=== PATIENT | male | born 1950 | race Caucasian/White ===

== ENCOUNTER → 2020-06-17 08:27 | Outpatient (CLI) | payer MEDICARE, OTHER, SELFPAY ==
[2020-06-17] MEDS: COVID-19 VACC #1, MRNA(MOD) 100 MCG/0.5 ML VIAL IM (08:36)
== END ==
PROVIDERS: PCP Registered Nurse Diabetes Educator; Visit Provider Internal Medicine
DX: Z23 Encounter for immunization (principal)
CPT/HCPCS: 0011A; 91301

== ENCOUNTER → 2020-07-15 08:26 | Outpatient (CLI) | payer MEDICARE, OTHER, SELFPAY ==
[2020-07-15] MEDS: COVID-19 VACC #2, MRNA(MOD) 100 MCG/0.5 ML VIAL IM (08:31)
== END ==
PROVIDERS: PCP Registered Nurse Diabetes Educator; Visit Provider Internal Medicine
DX: Z23 Encounter for immunization (principal)
CPT/HCPCS: 0012A; 91301

== ENCOUNTER → 2020-09-17 07:28 | Outpatient (CLI) | payer MEDICARE, OTHER, SELFPAY ==
[2020-09-17 08:02] LABS: Hemoglobin A1C% w Est Avg Glu 5.2 % (4.0-6.0)
[2020-09-17 08:03] LABS: Hematocrit 40.1 % (41-53); Hemoglobin 13.4 g/dL (13.5-17.5); Mean Corpuscular HGB Conc 33.4 % (30-36); Mean Corpuscular Hemoglobin 33.1 PG (26-34); Mean Corpuscular Volume 98.9 fL (80-100); Red Blood Cell Count 4.05 X10^6/uL (4.5-5.9); Red Cell Distribution Width 14.1 % (11.6-14.8); White Blood Cell Count 5.7 X10^3/uL (4.5-11.0)
[2020-09-17 08:15] LABS: HEMOLYSIS < 15 (0-50); Potassium 4.5 mmol/L (3.4-5.1)
[2020-09-17 08:16] LABS: Alanine Aminotransferase 45 IU/L (<50); Albumin Globulin Ratio 1.1 (1.0-2.8); Alkaline Phosphatase 71 U/L (38-126); Aspartate Aminotransferase 81 IU/L (17-59); BUN Creatinine Ratio 12.9 (6-22); Bilirubin Total 1.6 mg/dL (0.2-1.3); Blood Urea Nitrogen 9 mg/dL (9-20); Calcium 9.2 mg/dL (8.4-10.2); Carbon Dioxide 28 mmol/L (22-32); Chloride 101 mmol/L (98-107); Cholesterol 107 mg/dL (140-199); Estimated Glomerular Filt Rate > 60.0 mL/min (>60); Globulin 3.8 g/dL (1.7-4.1); Glucose 110 mg/dL (80-110); HDL Cholesterol 45 mg/dL (40-60); LDL Cholesterol Calculated 48 mg/dL (<100); Sodium 136 mmol/L (137-145); Total Protein 7.8 g/dL (6.3-8.2); Triglycerides 72 mg/dL (35-150)
[2020-09-17 08:37] LABS: Platelet Count 118 X10^3/uL (150-400)
[2020-09-17 08:40] LABS: TSH w/ Reflex to FT4 5.89 uIU/mL (0.47-4.68)
[2020-09-17 09:09] LABS: Free T4, Direct Thyroxine 1.21 ng/dL (0.78-2.19)
== END ==
PROVIDERS: PCP Registered Nurse Diabetes Educator; Referring Provider Registered Nurse Diabetes Educator; Visit Provider Registered Nurse Diabetes Educator
DX: I25.10 Atherosclerotic heart disease of native coronary artery without angina pectoris (principal); R73.01 Impaired fasting glucose
CPT/HCPCS: 36415; 80053; 80061; 83036; 84439; 84443; 85027

== ENCOUNTER → 2020-10-07 10:10 | Outpatient (CLI) | payer MEDICARE, OTHER, SELFPAY ==
[2020-10-07 11:31] LABS: Add Manual Diff / Slide Review NO; Basophils Absolute Auto 100 /uL (0-100); Basophils Percent Auto 1.2 % (0-2); Eosinophils Absolute Auto 300 /uL (0-450); Eosinophils Percent Auto 5.4 % (2-4); Hematocrit 38.2 % (41-53); Lymphocytes Absolute Auto 1000 /uL (1100-4500); Lymphocytes Percent Auto 18.2 % (25-40); Mean Corpuscular HGB Conc 33.9 % (30-36); Mean Corpuscular Hemoglobin 33.5 PG (26-34); Mean Corpuscular Volume 98.6 fL (80-100); Monocytes Absolute Auto 900 /uL (0-900); Monocytes Percent Auto 16.4 % (3-14); Neutrophils Absolute Auto 3100 /uL (1500-7000); Neutrophils Percent Auto 58.8 % (50-75); Platelet Count 132 X10^3/uL (150-400); Red Blood Cell Count 3.88 X10^6/uL (4.5-5.9); Red Cell Distribution Width 14.6 % (11.6-14.8); White Blood Cell Count 5.3 X10^3/uL (4.5-11.0)
[2020-10-07 11:45] LABS: Alanine Aminotransferase 38 IU/L (<50); Alkaline Phosphatase 79 U/L (38-126); Aspartate Aminotransferase 75 IU/L (17-59); BUN Creatinine Ratio 14.5 (6-22); Blood Urea Nitrogen 10 mg/dL (9-20); Calcium 8.9 mg/dL (8.4-10.2); Carbon Dioxide 27 mmol/L (22-32); Chloride 97 mmol/L (98-107); Estimated Glomerular Filt Rate > 60.0 mL/min (>60); Globulin 3.9 g/dL (1.7-4.1); Glucose 109 mg/dL (80-110); HEMOLYSIS < 15 (0-50); Potassium 5.3 mmol/L (3.4-5.1); Sodium 131 mmol/L (137-145); Total Protein 7.9 g/dL (6.3-8.2)
== END ==
PROVIDERS: PCP Registered Nurse Diabetes Educator; Referring Provider Registered Nurse Diabetes Educator; Visit Provider Registered Nurse Diabetes Educator
DX: I10 Essential (primary) hypertension (principal); D69.6 Thrombocytopenia, unspecified; R74.8 Abnormal levels of other serum enzymes; R79.89 Other specified abnormal findings of blood chemistry
CPT/HCPCS: 36415; 80053; 84443; 85025

== ENCOUNTER → 2020-10-15 09:17 | Outpatient (CLI) | payer MEDICARE, OTHER, SELFPAY ==
--- NOTE | 2020-10-15 09:20 | DI.RAD.S_ITS ---
PROCEDURE: XR CHEST 2V INDICATIONS: Abnormal lung sounds bilateral lower lobes/smoker TECHNIQUE: 2 views of the chest were acquired. COMPARISON: [facility], CR, XR CHEST 1VW (PORTABLE), 05/22/2016, 10:49. FINDINGS: Surgical changes and devices: None. Lungs and pleura: Lungs are clear. No pleural effusions or pneumothorax. Mediastinum: Mediastinal contours are normal. Heart size is normal. Bones and chest wall: No suspicious bony abnormalities. Soft tissues appear unremarkable. IMPRESSION: No acute cardiopulmonary process demonstrated radiographically. Dictated by: Dieter Ravi M.D. on 10/15/2020 at 9:57 Approved by: Dieter Ravi M.D. on 10/15/2020 at 9:59
== END ==
PROVIDERS: PCP Registered Nurse Diabetes Educator; Referring Provider Registered Nurse Diabetes Educator; Visit Provider Registered Nurse Diabetes Educator
DX: R09.89 Other specified symptoms and signs involving the circulatory and respiratory systems (principal); F17.200 Nicotine dependence, unspecified, uncomplicated
CPT/HCPCS: 71046

== ENCOUNTER → 2021-01-14 08:48 | Outpatient (CLI) | payer MEDICARE, OTHER, SELFPAY ==
--- OUTSIDE RECORDS SUMMARY | 2021-01-11 07:48 | XMS_ITS | Referral Summary ---
:1950 Author Organization [address] [address] Care Team Providers Name Role Phone MAO Valentin Primary Care Provider Reason for Referral Rehabilitation - Outpatient (Routine) - Closed Specialty Diagnoses / Procedures Referred By Contact Refer red To Contact Diagnoses SOB (shortness of breath) Martha Pryor MD [facility] Procedures Complete PFT with DLCO [address] [place] [address] [place] [id number] [place], [place] [address] Referral ID Status Reason Start Date Expiration Date Visits Requ ested Visits Authorized [id number] Closed 12/30/2020 12/25/2021 1 1 Diagnostic Imaging (Routine) - Pending Review Specialty Diagnoses / Procedures Referred By Contact Refer red To Contact Radiology Diagnoses Cerebrovascular accident (CVA), unspecified mechanism (CMS/HCC) Martha Pryor MD Procedures US CAROTID BILATERAL [address] [place] [address] [address] [place], [place] [address] Referral ID Status Reason Start Expiration Visits Visits Date Date Requested Authorized [id number] Pending Specialty 12/30/2020 12/25/2021 1 1 Review Services Required MRI/CAT/PET Scan (Routine) - Pending Review Specialty Diagnoses / Procedures Referred By Contact Refer red To Contact Radiology Diagnoses SOB (shortness of breath) Martha Pryor MD Procedures CT HIGH RESOLUTION CHEST [address] [place], [place] [address] Referral ID Status Reason Start Expiration Visits Visits Date Date Requested Authorized [id number] Pending Specialty 12/30/2020 12/25/2021 1 1 Review Services Required Reason for Visit Reason Comments Coronary Artery Disease Encounter Details Date Type Department Care Team Description [facility] Paroxysmal a trial fibrillation (CMS/HCC) (Primary Dx); Clinics Cardiology Martha Villanueva MD SOB (shortness of breath); [place] [address] Cerebrovascular accident (CV A), unspecified mechanism (CMS/HCC) [address] [place] [id number] Allergies Active Allergy Reactions Severity Noted Date Comments Hydromorphone Hcl 02/04/2017 documented as of this encounter (statuses as of 01/08/2021) Medications Medication Sig Dispensed Refills Start Date End Date Status atorvastatin Take 40 mg by 0 12/27/2016 Ac tive (LIPITOR) 40 mg mouth daily. tablet nicotine (NICODERM 1 patch daily. 0 06/10/2016 Active CQ) 14 mg/24 hr blood sugar Any type glucose 0 07/26/2016 Active diagnostic (glucose test strips need blood) strip for his one touch machine. Use to check Blood Sugar once daily. metFORMIN XR take 1 tablet by 30 tablet 2 07/25/2017 Active (GLUCOPHATE-XR) 500 mouth once daily mg 24 hr tablet amLODIPine (NORVASC) Take 5 mg by 0 09/11/2017 Active 5 mg tablet mouth. omeprazole Take 20 mg by 0 Activ e (PriLOSEC) 20 mg mouth daily. capsule aspirin 81 mg EC Take 81 mg by 0 Active tablet mouth daily. nitroglycerin Place 1 tablet 25 tablet 3 01/10/2019 Active (NITROSTAT) 0.4 mg (0.4 mg total) SL tablet under the tongue every 5 (five) minutes as needed for chest pain atenoloL (TENORMIN) Take 1 tablet by 0 02/20/2020 Active 25 mg tablet mouth daily valsartan (DIOVAN) Take 80 mg by 0 11/08/2019 Active 80 mg tablet mouth daily warfarin (COUMADIN) Take 1 tab (5mg) 130 tablet 0 11/26/2020 0 11/26/2021 Active 5 mg on Mon and Fri tabletIndications: and 1/2 tab Paroxysmal atrial (2.5mg) all other fibrillation days or as (CMS/HCC), S/P right directed by coronary artery cardiology (RCA) stent placement albuterol HFA Inhale 2 puffs 18 g 11 12/30/2020 12/30/2021 Active (ProAir) 90 every 4 (four) mcg/actuation hours as needed inhaler for wheezing or shortness of breath documented as of this encounter (statuses as of 01/08/2021) Active Problems Problem Noted Date Tobacco use 12/18/2017 Old anterior myocardial infarction 12/18/2017 Overview: in 08/1988 Appears asymptomatic. S/P right coronary artery (RCA) stent placement 2017 Overview: in 06/1996 and 01/1997. Paroxysmal atrial fibrillation 12/18/2017 Overview: EKG performed today showed . CAD (coronary artery disease) 02/22/2017 Overview: 12/20/2007 Hypertension 02/22/2017 Hyperlipidemia LDL goal <70 02/22/2017 Controlled type 2 diabetes mellitus without complicati on, without 02/22/2017 long-term current use of insulin documented as of this encounter (statuses as of 01/08/2021) Social History Tobacco Use Types Packs/Day Years Used Date Current Some Day Smoker 0.25 Smokeless Tobacco: Never Used Comments: Cigarette Alcohol Use Standard Drinks/Week Comments Yes 2 (1 standard drink = 0.6 oz pure alcoho l) Sex Assigned at Date Recorded Not on file Job Start Date Occupation Industry Not on file Not on file Not on file documented as of this encounter Last Filed Vital Signs Vital Sign Reading Time Taken Comments Blood Pressure 112/64 12/30/2020 9:03 AM PDT Pulse 80 12/30/2020 9:03 AM PDT Temperature - - Respiratory Rate - - Oxygen Saturation - - Inhaled Oxygen Concentration - - Weight 66.5 kg (146 lb 9.6 oz) 12/30/2020 9:03 AM PDT Height - - Body Mass Index 22.3 12/27/2018 8:59 AM PDT documented in this encounter Progress Notes Martha Proyr MD - 12/30/2020 9:30 AM PDT 1. Continue current pills 2. Do a blood test for regular cholesterol and also RARE flavor of cholesterol 3. 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 male that had concerns including Coronary Artery Disease. HPI: Pt is a 70 yo man with early onset CAD s/p anterior STEMI 89, PCI RCA 97, permanent afib (on warfarin and atenolol), DM (controlled on metformin), HTN, HL and stroke. He comes in to establish with me in cardiology after being followed by Dr. Farmer, and then sort of not having been seen by cardiology in 2 years. Pt has strong FH of heart disease, and had suffered a heart attack at age 38 yo. His angina is pretty classic with substernal burning pain radiating down left shoulder and arm. He has not had any of those symptoms lately. He suffered a stroke 2007 ([facility] at [facility]) with mild left leg residual weakness. Additionally he struggled with afib, but tolerating warfarin (inr monitored by [facility] cardiology); his biggest issue is involuntary weight loss (10 lbs) and ongoing smoking. Despite these problems pt is still active, and enjoys golfing. PAST CARDIAC HISTORY stemi - ANGINAL EQUIVALENT IS SEVERE CP, GOING DOWN LEFT ARM. Treated in [place] (Dr. Camacho at [facility]) PAST CARDIAC WORKUP Gxt/mpi 12/2018 Abnormal but intermediate risk stress test. Afib/rvr throughout the study. Even at the beginning of the study heart rate was 110 bpm. Normal hemodynamic reponse to graded exercise stress test; good exercise capacity for age; MARCIE -19%; no chest pain during activity. There is a large severe fixed apical perfusion defect consistent with prior infarct in LAD distribution. Echo 2016 The left ventricle is normal in size. The ejection fraction is estimated to be 50-55%. There is severe hypokinesis to akinesis of the mid and distal anterior septum, anterior wall and apex c/w ischemia or infarct in the LAD distribution. Assessment of diastolic parameters suggests a pseudonormalization pattern, consistent with elevatedfilling pressures. The IVC is of normal diameter and collapses greater than 50% with a sniff. This suggests a low right atrial pressure of 3 mm Hg. No other echocardiographic abnormalities seen. Compared to the prior echo report on 07/10/2013, thereis no significant change. Past Medical History: Diagnosis Date ??? Acute CVA (cerebrovascular accident) (CMS/HCC) 11/2007 with deficits ??? AF (paroxysmal atrial fibrillation) (CMS/HCC) ??? Arrhythmia ??? CAD (coronary artery disease) ??? Diabetes mellitus (CMS/HCC) ??? History of fracture of clavicle ??? Hyperlipidemia ??? Hypertension ??? Myocardial infarction (CMS/HCC) 1988 ??? TIA (transient ischemic attack) Past Surgical History: Procedure Laterality Date ??? CARDIAC CATHETERIZATION 1996 stents x3 ??? CARDIAC CATHETERIZATION 2007 ??? CORONARY STENT PLACEMENT 1996 placement of a bare metal stent x4 ??? HERNIA REPAIR Family History Problem Relation Age of Onset ??? Stroke Father x3 ??? Heart attack Father 50 [place] ??? Congenital heart disease Son Social History Socioeconomic History ??? Marital status: Spouse name: Not on file ??? Number of children: Not on file ??? Years of education: Not on file ??? Highest education level: Not on file Tobacco Use ??? Smoking status: Current Some Day Smoker Packs/day: 0.25 ??? Smokeless tobacco: Never Used ??? Tobacco comment: Cigarette Substance and Sexual Activity ??? Alcohol use: Yes Alcohol/week: 2.0 standard drinks Types: 2 Glasses of wine per week ??? Drug use: Never Allergies Allergen Reactions ??? Hydromorphone Hcl Current Medication List Sig amLODIPine (NORVASC) 5 mg tablet Take 5 mg by mouth. aspirin 81 mg EC tablet Take 81 mg by mouth daily. atenoloL (TENORMIN) 25 mg tablet Take 1 tablet by mouth daily atorvastatin (LIPITOR) 40 mg tablet Take 40 mg by mouth daily. blood sugar diagnostic (glucose blood) strip Any type glucose test strips need for his one touch machine. Use to check Blood Sugar once daily. metFORMIN XR (GLUCOPHATE-XR) 500 mg 24 hr tablet take 1 tablet by mouth once daily nicotine (NICODERM CQ) 14 mg/24 hr 1 patch daily. nitroglycerin (NITROSTAT) 0.[address] 1 tablet (0.4 mg total) under the tongue every 5 (five) minutes as needed for chest pain omeprazole (PriLOSEC) 20 mg capsule Take 20 mg by mouth daily. valsartan (DIOVAN) 80 mg tablet Take 80 mg by mouth daily warfarin (COUMADIN) 5 mg tablet Take 1 tab (5mg) on Mon and Fri and 1/2 tab (2.5mg) all other days or as directed by cardiology albuterol HFA (ProAir) 90 mcg/actuation inhaler Inhale 2 puffs every 4 (four) hours as needed for wheezing or shortness of breath Review of Systems Constitutional: Negative for fatigue and unexpected weight change. Respiratory: Negative for chest tightness and shortness of breath. Cardiovascular: Negative for chest pain, palpitations and leg swelling. Endocrine: Negative for polydipsia. Genitourinary: Negative for hematuria. Skin: Negative for rash. Neurological: Negative for dizziness, weakness and light-headedness. Hematological: Does not bruise/bleed easily. Psychiatric/Behavioral: The patient is not nervous/anxious. All other systems reviewed and are negative. Objective BP 112/64 (BP Location: Left arm, Patient Position: Sitting) Pulse 80 Wt 66.5 kg BMI 22.30 kg/m?? Physical Exam: General Appearance: Well-nourished, pleasant, cooperative, no apparent distress HEET: Normocephalic atraumatic, EOMI, no scleral icterus, no arcus, tongue midline, mucous membranesmoist, good dentition Neck: No obvious mass, supple Respiratory: Good aeration, clear to auscultation and percussion, no rales or wheeze Cardiovascular: Nondisplaced PMI, irregularly irregular, normal S1 and normal S2, no murmurs/rubs/gallops, JVP 4-5 cm, no JVD Pulses: Carotid and femoral pulses 2+ bilaterally without bruit, dorsalis pedis and anterior tibial pulses 2+ bilaterally Abdomen: Soft, nondistended, nontender, no heptosplenomegally, no hepatojugular reflux, normal bowelsounds without bruits Extremities: No clubbing, cyanosis or edema Neuro: Alert, no facial droop, tongue midline, no gross motor deficits Psych: Appropriate affect, normal mentation and memory Skin: Warm and dry, no rashes on face, neck, and lower extremities Assessment/Plan Diagnoses and all orders for this visit: Paroxysmal atrial fibrillation (CMS/HCC) - ECG 12 Lead (Clinic - Same Day) SOB (shortness of breath) - CT HIGH RESOLUTION CHEST; Future - Complete PFT with DLCO; Future Cerebrovascular accident (CVA), unspecified mechanism (CMS/HCC) - US CAROTID BILATERAL; Future - Lipoprotein (a); Future - Lipid panel Expires 12 Months; Future Other orders - albuterol HFA (ProAir) 90 mcg/actuation inhaler; Inhale 2 puffs every 4 (four) hours as neededfor wheezing or shortness of breath Assessment/Plan Comments: Pt is a 70 yo man with early onset CAD s/p anterior STEMI 89, PCI RCA 97, permanent afib (on warfarin and atenolol), DM, HTN, HL and stroke. He comes in to establish with me in cardiology after being followed by Dr. Farmer, and then sort of not having been seen by cardiology in a year. Cad - asa for life Hl - at goal as of 2020; will repeat with next blood drawn /labs from 10/2019 showed tc 121 tg 40 hdl63 ldl68 DM - controlled on metformin, A1c <6% HTN - controlled Permanent afib - no awareness of palpitations, on atenolol and warfarin for stroke prevention Smoking - encourage pt to continue his journey with attempting to quit. He is using nicotine patches PAD - screened for AAA by Dr. Kramer in 2018 - no aneurysm found. Will order carotid ultrasound to check for carotid stenosis Early onset CAD - will order lipids and lp(a) Pt says he has strong FH of CAD Involuntary weight loss - Lungs sound really coarse. I also reviewed CXR at , and I appreciate increased reticulonodular opacities in the right lung, worse than in the left lung. Recommend CT and pft's, as well as rescue inhlaer Electronically signed by Martha Pryor MD 12/30/2020 10:05 AM documented in this encounter Plan of Treatment Upcoming Encounters Date Type Specialty Care Team Description 01/13/2021 Anticoagulation Visit Cardiology Scheduled Orders Name Type Priority Associated Diagnoses Order S chedule CT HIGH RESOLUTION Imaging Routine SOB (shortness of marion th) Expected: 12/30/2020, CHEST Expires: 2021 US CAROTID BILATERAL Imaging Routine Cerebrovascular acci dent Expected: 12/30/2020, (CVA), unspecified Expires: 04/01/2022 mechanism (CMS/HCC) Complete PFT with DLCO PFT Routine SOB (shortness of breath) 1 Occurrences starting 2020 until 2 Lipoprotein (a) Lab Routine Cerebrovascular accident 1 Occurrences (CVA), unspecified starting 12/30/2020 mechanism (CMS/HCC) until Lipid panel Expires 12 Lab Routine Cerebrovascular ac cident Expected: 12/30/2020, Months (CVA), unspecified Expires: 12/30/2021 mechanism (CMS/HCC) documented as of this encounter Procedures Procedure Name Priority Date/Time Associated Diagnosis Comme nts ECG 12-LEAD Routine 01/01/2021 8:39 AM Paroxysmal atrial Res ults for this PDT fibrillation (CMS/HCC) proce dure are in the results section. documented in this encounter Results ECG 12 Lead (Clinic - Same Day) (01/01/2021 8:39 AM PDT) Narrative Martha Pryor MD - 01/01/2021 8 :39 AM PDT This result has an attachment that is no t available. Result approved by Martha Pryor MD on 01/01/21 documented in this encounter Visit Diagnoses Diagnosis Paroxysmal atrial fibrillation (CMS/HCC) - Primary Atrial fibrillation SOB (shortness of breath) Shortness of breath Cerebrovascular accident (CVA), unspecif ied mechanism (CMS/HCC) documented in this encounter Insurance Payer Benefit Plan / Subscriber ID Effective Dates Phone Addre ss Type Group MEDICARE MEDICARE PART A [id number] 2014-Present [phone] [address] [place] [address] AETNA SUPP AETNA GEHA SUPP [id number] 2013-Present [phone] [address] [place] [address] Guarantor Name Account Type Relation to Date of Phone Bill ing Patient Address Ken Aguilar Personal/Family Self 1950 [address] (Home) [place] [address] documented as of this encounter Advance Directives Documents on File Type Date Recorded 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
--- NOTE | 2021-01-14 | DI.US.S_ITS ---
PROCEDURE: US CAROTID DOPPLER BI INDICATIONS: Shortness of breathCerebral infarction, unspecifie TECHNIQUE: Color and pulse Doppler interrogation was performed of both carotid systems, with image documentation and velocity measurements. COMPARISON: None. FINDINGS: Stenosis calculations are based on SRU (Society of Radiologists in Ultrasound) criteria. The flow velocities and the arterial waveforms are normal within both carotid arterial systems. Mild atherosclerotic plaque is seen on both sides. The estimated degree of internal carotid artery stenosis is less than 50%. Antegrade flow is confirmed within both vertebral arteries. IMPRESSION: No hemodynamically significant stenosis is seen. Dictated by: Alexey Singh M.D. on 01/14/2021 at 8:55 Approved by: Alexey Singh M.D. on 01/14/2021 at 8:55
--- NOTE | 2021-01-14 09:34 | DI.CT.S_ITS ---
PROCEDURE: CT CHEST HIGH RESOLUTION INDICATIONS: Shortness of breathCerebral infarction, unspecifie TECHNIQUE: Noncontrast 1.0 and 5.0 mm thick contiguous axial sections from the pulmonary apex to the posterior costophrenic angles, with 7 mm thick coronal and sagittal MIP reformats. 1 mm thick dynamic expiratory images acquired through the upper, mid, and lower lungs. 1.0 mm thick axial sections acquired from the jemma to the posterior costophrenic angles in the prone end-inspiration position. For radiation dose reduction, the following was used: automated exposure control, adjustment of mA and/or kV according to patient size. COMPARISON: None. FINDINGS: Image quality: Excellent. Lungs: The trachea is patent without debris. There is mucous in the left mainstem bronchus resulting in slight luminal irregularity. Moderate bilateral perihilar peribronchial thickening causing airway narrowing, most extensive in the lower lobes. Bronchial wall thickening is mild in the upper lobes bilaterally. No bronchiectasis. Dynamic images demonstrate no significant air trapping. The lungs demonstrate mild paraseptal emphysematous changes at the lung apices, and occasional centrilobular emphysematous changes in the mid to lower lung zones, specifically a thin-walled cyst centrally in the right lower lobe, 3/235. Several punctate and 2 mm subpleural ground-glass and solid nodules are present in the lung apices bilaterally. Pleura: No pleural effusions or pneumothorax. Trace reticulation and pleural plaquing is seen anteriorly in the bilateral upper lobes, otherwise no significant subpleural reticulation or honeycombing. Mediastinum: Heart size is mildly enlarged. Heavy coronary artery calcification. No pericardial effusion. Thoracic aorta and central pulmonary arteries are normal in size. Esophagus is normal in caliber. Bones and chest wall: No suspicious bony lesions. No vertebral body compression fractures. Abdomen: Visualized upper abdominal solid organs and bowel loops appear normal. IMPRESSION: 1. Bilateral perihilar peribronchial wall thickening suggesting bronchitis of uncertain chronicity. 2. Several bilateral upper lobe subpleural nodules on a background of mild emphysema. No other significant changes of interstitial lung disease. Respiratory bronchiolitis-interstitial lung disease or hypersensitivity pneumonitis could be considered. No evidence of fibrosis. Dictated by: Matilde Lozada M.D. on 01/14/2021 at 12:14 Approved by: Matilde Lozada M.D. on 01/14/2021 at 12:27
== END ==
PROVIDERS: PCP Registered Nurse Diabetes Educator; Referring Provider Internal Medicine; Visit Provider Internal Medicine
DX: I63.9 Cerebral infarction, unspecified (principal); R06.02 Shortness of breath; J43.9 Emphysema, unspecified; R91.8 Other nonspecific abnormal finding of lung field
CPT/HCPCS: 71250; 93880

== ENCOUNTER → 2021-01-21 08:45 | Outpatient (CLI) | payer MEDICARE, OTHER, SELFPAY ==
[2021-01-21 11:34] LABS: COVID19 -Nasal RAPID Negative (Negative)
== END ==
PROVIDERS: PCP Registered Nurse Diabetes Educator; Referring Provider Internal Medicine; Visit Provider Internal Medicine
DX: Z20.822 Contact with and (suspected) exposure to COVID-19 (principal)
CPT/HCPCS: 87635; C9803

== ENCOUNTER → 2021-01-21 08:50 | Outpatient (CLI) | payer MEDICARE, OTHER, SELFPAY ==
--- NOTE | 2021-01-27 08:27 | PM.PFT.1 ---
Pulmonary Function Test Referral & Results Date Patient Seen: 01/21/21 Requesting provider: Martha Pryor Results: The spirometry demonstrates an FVC of 3.70 L which is 87% of predicted. The FEV1 was measured at 2.62 L which is 85% of predicted. The FEV1/FVC ratio was 71 which is 97% of predicted. Following the administration of bronchodilator there was a 12% improvement in FEV1 and a 65% improvement in FEF 25-75% Lung volumes show an SVC of 3.58 L which is 81% of predicted. The diffusing capacity was measured at 19.0 weight which is 61% of predicted. No hemoglobin value was provided, so no correction for potential anemia could be made, if appropriate. The maximum voluntary ventilation was slightly reduced Interpretation: This study demonstrates the possibility of very mild obstructive lung disease based primarily on improvement post bronchodilator. There is a minimal reduction FEV1 although FEV1/FVC ratio was preserved There is also minimal reduction in lung volumes suggesting very mild restrictive lung disease which may explain the reduction FEV1. There is a more notable reduction diffusing capacity suggesting more significant disease at the capillary alveolar level Clinical correlation suggested
== END ==
PROVIDERS: PCP Registered Nurse Diabetes Educator; Referring Provider Internal Medicine; Visit Provider Internal Medicine
DX: R06.02 Shortness of breath (principal); F17.210 Nicotine dependence, cigarettes, uncomplicated; Z20.822 Contact with and (suspected) exposure to COVID-19; J98.8 Other specified respiratory disorders
CPT/HCPCS: 87635; 94060; 94726; 94729; C9803

== ENCOUNTER → 2021-09-29 08:50 | Outpatient (CLI) | payer MEDICARE, OTHER, SELFPAY ==
[2021-09-29 10:11] LABS: Hematocrit 40.2 % (41-53); Hemoglobin 13.5 g/dL (13.5-17.5); Mean Corpuscular HGB Conc 33.5 % (30-36); Mean Corpuscular Hemoglobin 33.1 PG (26-34); Mean Corpuscular Volume 98.8 fL (80-100); Platelet Count 127 X10^3/uL (150-400); Red Blood Cell Count 4.07 X10^6/uL (4.5-5.9); Red Cell Distribution Width 14.2 % (11.6-14.8); White Blood Cell Count 5.1 X10^3/uL (4.5-11.0)
[2021-09-29 10:14] LABS: Hemoglobin A1C% w Est Avg Glu 5.2 % (4.0-6.0)
[2021-09-29 10:59] LABS: Alanine Aminotransferase 23 IU/L (<50); Albumin 3.9 g/dL (3.5-5.0); Albumin Globulin Ratio 0.9 (1.0-2.8); Alkaline Phosphatase 77 U/L (38-126); Aspartate Aminotransferase 52 IU/L (17-59); BUN Creatinine Ratio 10.1 (6-22); Bilirubin Total 1.4 mg/dL (0.2-1.3); Blood Urea Nitrogen 7 mg/dL (9-20); Calcium 8.8 mg/dL (8.4-10.2); Carbon Dioxide 29 mmol/L (22-32); Chloride 101 mmol/L (98-107); Cholesterol 104 mg/dL (140-199); Estimated Glomerular Filt Rate > 60 mL/min (>60); Globulin 4.2 g/dL (1.7-4.1); Glucose 104 mg/dL (80-110); HDL Cholesterol 37 mg/dL (40-60); HEMOLYSIS < 15 (0-50); LDL Cholesterol Calculated 52 mg/dL (<100); Potassium 4.7 mmol/L (3.4-5.1); Sodium 135 mmol/L (137-145); Total Protein 8.1 g/dL (6.3-8.2); Triglycerides 76 mg/dL (35-150)
[2021-09-29 11:24] LABS: TSH w/ Reflex to FT4 4.79 uIU/mL (0.47-4.68)
[2021-09-29 11:57] LABS: Free T4, Direct Thyroxine 1.23 ng/dL (0.78-2.19)
== END ==
PROVIDERS: PCP Registered Nurse Diabetes Educator; Referring Provider Registered Nurse Diabetes Educator; Visit Provider Registered Nurse Diabetes Educator
DX: D69.6 Thrombocytopenia, unspecified (principal); R73.01 Impaired fasting glucose; I25.10 Atherosclerotic heart disease of native coronary artery without angina pectoris; R79.89 Other specified abnormal findings of blood chemistry; R74.8 Abnormal levels of other serum enzymes
CPT/HCPCS: 36415; 80053; 80061; 83036; 84439; 84443; 85027

== ENCOUNTER → 2021-12-22 10:01 | Outpatient (CLI) | payer MEDICARE, OTHER, SELFPAY ==
--- NOTE | 2021-12-22 10:03 | DI.CT.S_ITS ---
PROCEDURE: CT LUNG LOW DOSE SCREENING INDICATIONS: smoker, routine screen TECHNIQUE: Noncontrast 2.0-2.5 mm thick sections acquired from the pulmonary apices to the posterior costophrenic angles. 7 mm thick axial MIP, and 5 mm coronal and sagittal reformats were then acquired. A low radiation dose technique was utilized. COMPARISON: [facility], CT, CT CHEST HIGH RESOLUTION, 01/14/2021, 9:04. FINDINGS: Image quality: Diagnostic, given the low radiation dose technique. Lungs and pleura: Scattered scarring. Emphysema. Small pulmonary nodules are present under 5 millimeters, most of which were present on previous CT from 01/14/2021. No pleural effusions. Mediastinum: No lymphadenopathy. No thoracic aortic aneurysm. There are coronary artery calcifications. Bones and chest wall: Thyroid is within normal limits. No suspicious osseous lesion. Probably an old left rib deformity. Abdomen: Atrophic, partially seen pancreas. IMPRESSION: LUNG-RADS 2; continue annual screening in 12 months. Coronary calcifications. Dictated by: Jose Le M.D. on 12/22/2021 at 15:40 Approved by: Jose Le M.D. on 12/22/2021 at 15:46
== END ==
PROVIDERS: PCP Registered Nurse Diabetes Educator; Referring Provider Registered Nurse Diabetes Educator; Visit Provider Registered Nurse Diabetes Educator
DX: Z13.83 Encounter for screening for respiratory disorder NEC (principal); R91.8 Other nonspecific abnormal finding of lung field; J43.9 Emphysema, unspecified; I25.10 Atherosclerotic heart disease of native coronary artery without angina pectoris; F17.200 Nicotine dependence, unspecified, uncomplicated
CPT/HCPCS: 71250

== ENCOUNTER → 2022-05-25 09:20 | Outpatient (CLI) | payer MEDICARE, OTHER, SELFPAY ==
[2022-05-25 11:50] LABS: COVID19 -Nasal RAPID Negative (Negative)
== END ==
PROVIDERS: PCP Registered Nurse Diabetes Educator; Visit Provider Surgery
DX: Z20.822 Contact with and (suspected) exposure to COVID-19 (principal); Z01.812 Encounter for preprocedural laboratory examination
CPT/HCPCS: 87635; C9803

== ENCOUNTER 2022-05-26 11:15 | Day surgery (SDC) | payer MEDICARE, OTHER, SELFPAY ==
--- NOTE | 2022-05-26 | PATH_ITS ---
[facility] Accession Number: [id number] . 01 Material submitted: . cecum - CECAL POLYP . 01 Diagnosis: Cecum, Polyp, Biopsy: Tubular adenoma. [facility] 05/30/2022 1125 Local . 01 Electronically signed: . Jane Segovia MD, Pathologist NPI- [id number] . 01 Gross description: . CECAL POLYP: Received in formalin are 4 fragment(s) of rodriguez, soft tissue measuring 0.5 x 0.4 x 0.2 cm to 0.3 x 0.1 x 0.1 cm submitted entirely in 1 cassette(s) /CPE 05/27/2022 0645 Local . 01 Pathologist provided ICD-10: D12.0 . 01 CPT . 480417 Specimen Comment: A courtesy copy of this report has been sent to [phone] Performed at: 01 [facility] Cytology [address] [place] [address], [place], [place] [id number] MD Ivan Luong MD Phone: [phone]
[2022-05-26] MEDS: LACTATED RINGERS 1,000 ML 84 ML IV (11:38)
[2022-05-26 11:40] VITALS: BP 132/84; PULSE 110; RESP 16; TEMP 36.2; O2SAT 100; BMI 22.1
[2022-05-26 12:19] VITALS: BMI 22.1
--- NOTE | 2022-05-26 12:53 | PM.HP.1 ---
History of Present Illness History of Present Illness Date Patient Seen: 05/26/22 Time Patient Seen: 12:53 Chief complaint: SCREENING COLONOSCOPY Narrative: Ken is a 71-year-old man who is here for colonoscopy. His last was 6 years ago and he believes no polyps were found. He believes he has a family history of colon cancer on his mother's side. He takes Coumadin for atrial fibrillation but he has held it since Monday. Patient History Medical History A-fib (~2007) Coronary artery disease Herpes (~1975) History of CVA (cerebrovascular accident) (~1988) Impaired fasting blood sugar Surgical History Anesthesia History of coronary artery stent placement (~1997) Family & Social History Family History Father History of heart disease Stroke Mother Cancer Brother Breast cancer Sister Cancer Tobacco & Substance use: Smoking Status Current every day smoker alcohol intake current alcohol intake frequency 0-2 drinks per day Substance Use Type marijuana Meds Home Medications and Allergies Home Medications Medication Instructions Recorded Confirmed Type GLUCOSE BLOOD STRIP miscellaneous 05/27/20 02/11/22 History aspirin 81 mg tablet,delayed 81 mg PO DAILY 05/27/20 05/26/22 History release (Adult Low Dose Aspirin) warfarin 5 mg tablet 5 mg PO 2XW #90 tabs 02/10/21 02/11/22 Rx amlodipine 5 mg tablet 5 mg PO DAILY #90 tabs 10/11/21 05/26/22 Rx atenolol 25 mg tablet 25 mg PO DAILY #90 tabs 10/11/21 05/26/22 Rx metformin 500 mg tablet,extended 500 mg PO DAILY #90 tabs 10/11/21 05/26/22 Rx release 24 hr nicotine 14 mg/24 hr daily 1 patch transdermal DAILY #84 ea 10/11/21 02/11/22 Rx transdermal patch (Nicoderm CQ) nitroglycerin 0.4 mg sublingual 0.4 mg sublingual Q5M PRN chest 10/11/21 02/11/22 Rx tablet pain #10 tabs omeprazole 20 mg capsule,delayed 20 mg PO DAILY #90 caps 10/11/21 05/26/22 Rx release valsartan 80 mg tablet 80 mg PO DAILY #90 tabs 10/11/21 02/11/22 Rx atorvastatin 40 mg tablet 40 mg PO DAILY #30 tabs 03/15/22 05/26/22 Rx valsartan 80 mg tablet 80 mg PO DAILY 05/26/22 05/26/22 History Allergies Allergy/AdvReac Type Severity Reaction Status Date / Time lorazepam [From Ativan] AdvReac Intermediate Agitated Verified 05/26/22 12:08 Exam Vital Signs (past 8 hours): - 05/26/22 11:40 Temperature 97.2 F L Pulse Rate 110 H Respiratory Rate 16 Blood Pressure 132/84 Pulse Oximetry 100 Oxygen Delivery Method Room Air Oxygen Delivery Method Room Air Const General: healthy appearing Assessment & Plan Assessment and plan (1) Family history of colon cancer: Status: Acute Plan Proceed with colonoscopy. We reviewed the risks and benefits and he would like to proceed. Time Spent With Patient Critical Care time: I spent a total of [] minutes of critical care time on this patient's care today; this time is exclusive of procedural time.
--- NOTE | 2022-05-26 13:18 | PM.OP.COLON ---
Operative Date/Time/Diagnoses Date of procedure: 05/26/22 Time of procedure: 13:18 Pre-op diagnosis: Colon cancer screening Post-op diagnosis: same Procedure & Clinicians Study performed: Colonoscopy Same procedure as scheduled: Yes Surgeon: Ken Barron Procedure Notes Procedure in detail: Surgeon: Ken Barron MD Anesthesia: Tigre Arias MD Procedure: The patient was brought to the endoscopy suite, placed in left lateral decubitus position. The patient was connected to monitoring devices. A time-out was performed. Sedation was administered. Once the patient was adequately sedated, a digital rectal exam was performed and was normal. The scope was then inserted and advanced to the cecum where the appendiceal orifice was identified and photographed. There was a small polyp right on the appendiceal orifice which was removed with a cold snare. It was about 4 mm. The scope was then slowly withdrawn over greater than 6 minutes. The mucosa was thoroughly inspected. The scope was retroflexed in the rectum. No more abnormalities were seen. The scope was straightened and removed. The patient was awakened and brought to recovery. Scope withdrawal time: 9 minutes Sedation time: 14 minutes EBL: 5 mL Findings: 4 mm cecal polyp Post-procedure Disposition: PACU
[2022-05-26 13:20] VITALS: BP 84/61; PULSE 87; RESP 14; TEMP 36.2; O2SAT 97
[2022-05-26 13:25] VITALS: BP 98/63; PULSE 82; RESP 12; TEMP 36.3; O2SAT 96
[2022-05-26 13:30] VITALS: BP 95/65; PULSE 82; RESP 12; TEMP 36.3; O2SAT 97
[2022-05-26 13:40] VITALS: BP 107/71; PULSE 68; RESP 14; TEMP 36.2; O2SAT 97
[2022-05-26 13:50] VITALS: BP 119/87; PULSE 83; RESP 15; TEMP 36.2; O2SAT 96
== END 2022-05-26 14:09 | disposition home or self-care (01) ==
PROVIDERS: PCP Registered Nurse Diabetes Educator; Referring Provider Surgery; Visit Provider Surgery
PROC: 0DJD8ZZ Inspection of Lower Intestinal Tract, Via Natural or Artificial Opening Endoscopic (ICD-10-PCS; CPT 45378; principal; 2022-05-26 11:00)
DX: Z12.11 Encounter for screening for malignant neoplasm of colon (principal); D12.0 Benign neoplasm of cecum
CPT/HCPCS: 45385; J2704

== ENCOUNTER → 2022-11-30 07:15 | Outpatient (CLI) | payer MEDICARE, OTHER, SELFPAY ==
--- NOTE | 2022-11-30 07:45 | DI.CT.S_ITS ---
PROCEDURE: CT CHEST WO CON INDICATIONS: Nicotine dependence, unspecified, uncomplicated TECHNIQUE: Noncontrast 2.0-2.5 mm thick sections acquired from the pulmonary apices to the posterior costophrenic angles. 7 mm thick axial MIP, and 5 mm coronal and sagittal reformats were then acquired. A low radiation dose technique was utilized. COMPARISON: None. FINDINGS: Image quality: Diagnostic, given the low radiation dose technique. Lungs and pleura: The lungs are clear. No suspicious pulmonary nodules. No acute airspace opacities. Mild paraseptal emphysema is present at the apices. No pleural effusion or pneumothorax. Mediastinum: Heart size is normal. No pericardial effusion. No mediastinal adenopathy by size criteria. Thoracic aorta and central pulmonary arteries are normal in size. Scattered atheromatous calcifications are present within the aortic arch. There are scattered atheromatous coronary artery calcifications. Esophagus is normal in caliber. No hiatal hernia. Bones and chest wall: No suspicious bony lesions. No vertebral body compression fractures. No axillary or supraclavicular adenopathy by size criteria. Thyroid gland is unremarkable. Abdomen: Visualized upper abdomen solid organs and bowel loops appear normal in the absence of contrast. IMPRESSION: No suspicious pulmonary findings. LUNG-RADS 1; [address] surveillance recommended for high-risk patients. Dictated by: Sheri Ponce M.D. on 11/30/2022 at 9:09 Approved by: Sheri Ponce M.D. on 11/30/2022 at 9:09
[2022-11-30 09:02] LABS: Add Manual Diff / Slide Review NO; Basophils Absolute Auto 100 /uL (0-100); Basophils Percent Auto 0.8 % (0-2); Eosinophils Absolute Auto 500 /uL (0-450); Eosinophils Percent Auto 6.8 % (2-4); Hematocrit 39.4 % (41-53); Hemoglobin 13.4 g/dL (13.5-17.5); Lymphocytes Absolute Auto 1100 /uL (1100-4500); Lymphocytes Percent Auto 16.9 % (25-40); Mean Corpuscular Hemoglobin 33.2 PG (26-34); Mean Corpuscular Volume 97.6 fL (80-100); Monocytes Absolute Auto 800 /uL (0-900); Monocytes Percent Auto 12.1 % (3-14); Neutrophils Absolute Auto 4200 /uL (1500-7000); Neutrophils Percent Auto 63.4 % (50-75); Platelet Count 153 X10^3/uL (150-400); Red Blood Cell Count 4.04 X10^6/uL (4.5-5.9); Red Cell Distribution Width 14.9 % (11.6-14.8); White Blood Cell Count 6.7 X10^3/uL (4.5-11.0)
[2022-11-30 09:26] LABS: Alanine Aminotransferase 20 IU/L (<50); Albumin 4.3 g/dL (3.5-5.0); Alkaline Phosphatase 79 U/L (38-126); Aspartate Aminotransferase 38 IU/L (17-59); BUN Creatinine Ratio 11.5 (6-22); Bilirubin Total 1.4 mg/dL (0.2-1.3); Blood Urea Nitrogen 10 mg/dL (9-20); Calcium 9.2 mg/dL (8.4-10.2); Carbon Dioxide 29 mmol/L (22-32); Chloride 100 mmol/L (98-107); Cholesterol 113 mg/dL (140-199); Estimated Glomerular Filt Rate > 60 mL/min (>60); Globulin 4.3 g/dL (1.7-4.1); Glucose 102 mg/dL (80-110); HDL Cholesterol 48 mg/dL (40-60); HEMOLYSIS < 15 (0-50); LDL Cholesterol Calculated 55 mg/dL (<100); Potassium 4.9 mmol/L (3.4-5.1); Sodium 135 mmol/L (137-145); Total Protein 8.6 g/dL (6.3-8.2); Triglycerides 49 mg/dL (35-150)
[2022-11-30 09:56] LABS: TSH w/ Reflex to FT4 4.07 uIU/mL (0.47-4.68)
[2022-12-01 03:36] LABS: Labcorp Hemoglobin (Hb) A1c 5.2 % (4.8-5.6)
== END ==
PROVIDERS: PCP Registered Nurse Diabetes Educator; Referring Provider Registered Nurse Diabetes Educator; Visit Provider Registered Nurse Diabetes Educator
DX: I63.9 Cerebral infarction, unspecified (principal); Z12.2 Encounter for screening for malignant neoplasm of respiratory organs; Z51.81 Encounter for therapeutic drug level monitoring; I48.91 Unspecified atrial fibrillation; I25.10 Atherosclerotic heart disease of native coronary artery without angina pectoris; R73.01 Impaired fasting glucose; F17.200 Nicotine dependence, unspecified, uncomplicated
CPT/HCPCS: 36415; 71250; 80053; 80061; 83036; 83695; 84443; 85025

== ENCOUNTER → 2022-12-28 07:14 | Outpatient (CLI) | payer MEDICARE, OTHER, SELFPAY ==
[2022-12-28 08:33] LABS: Reticulocyte Count, Percent 0.6 % (0.9-2.6)
[2022-12-28 08:37] LABS: HEMOLYSIS < 15 (0-50); Iron 77 ug/dL (49-181)
[2022-12-28 08:48] LABS: Percent Iron Saturation 18 % (20-50); Total Iron Binding Capacity 429 ug/dL (261-462); Transferrin 309 mg/dL (206-381)
[2022-12-28 09:08] LABS: Ferritin 28 ng/mL (18-464)
[2022-12-28 09:39] LABS: Folate 13.4 ng/mL (2.76-20.0); Vitamin B12 Reflex MMA if <400 224 pg/mL (239-931)
[2022-12-29 21:07] LABS: Free Kappa Lt Chains, Serum 100.2 mg/L (3.3-19.4); Free Lambda Lt Chains,Serum 48.6 mg/L (5.7-26.3)
[2022-12-30 15:10] LABS: Immunoglobulin A, Serum 714 mg/dL (61-437); Immunoglobulin G,Serum 2114 mg/dL (603-1613); Immunoglobulin M, Serum 81 mg/dL (15-143)
[2022-12-30 15:50] LABS: Albumin 3.4 g/dL (2.9-4.4); Alpha-1-Globulin 0.2 g/dL (0.0-0.4); Alpha-2-Globulin 0.9 g/dL (0.4-1.0); Gamma Globulin 2.3 g/dL (0.4-1.8); Globulin Total 4.6 g/dL (2.2-3.9)
[2022-12-31 04:12] LABS: Methylmalonic Acid,Serum 175 nmol/L (0-378)
[2023-02-08 12:28] LABS: IGA 714
[2023-02-08 12:30] LABS: IGG 2114
[2023-02-08 12:32] LABS: IGM 81
== END ==
PROVIDERS: PCP Registered Nurse Diabetes Educator; Referring Provider Registered Nurse Diabetes Educator; Visit Provider Registered Nurse Diabetes Educator
DX: D64.9 Anemia, unspecified (principal); E88.09 Other disorders of plasma-protein metabolism, not elsewhere classified; R77.1 Abnormality of globulin
CPT/HCPCS: 36415; 82607; 82728; 82746; 82784; 83540; 83550; 83883; 83921; 84155; 84165; 85045; 86334

== ENCOUNTER → 2023-12-05 08:57 | Outpatient (CLI) | payer MEDICARE, OTHER, SELFPAY ==
--- NOTE | 2023-12-05 | DI.CT.S_ITS ---
PROCEDURE: CT LUNG LOW DOSE SCREENING INDICATIONS: Nicotine dependence TECHNIQUE: Noncontrast 2.0-2.5 mm thick sections acquired from the pulmonary apices to the posterior costophrenic angles. 7 mm thick axial MIP, and 5 mm coronal and sagittal reformats were then acquired. For radiation dose reduction, the following was used: automated exposure control, adjustment of mA and/or kV according to patient size. COMPARISON: [facility], CT, CT CHEST WO CON, 11/30/2022, 7:41. [facility], CT, CT LUNG LOW DOSE SCREENING, 12/22/2021, 10:10. FINDINGS: Image quality: Diagnostic. Lower Neck: No enlarged lymph nodes. Thyroid: Normal CT appearance. Axillae: No enlarged lymph nodes. Chest Wall: Minimal gynecomastia. Bones: Bridging osteophytosis throughout the thoracic vertebral bodies. Lungs and Pleura: Small anterolateral right upper lobe, and to lesser extent left upper lobe part solid and ground-glass nodules have demonstrated two year stability. Right minor fissure juxta fissural nodules are benign. No new lung nodules or masses. Mild diffuse bronchial wall thickening. No bronchiectasis. No ground-glass opacities or consolidations. Mild upper lobe emphysema. No pleural effusion or pleural calcification. Heart: Heart size is normal. No pericardial effusion. Heavy coronary artery calcification. Thoracic Vessels: The aorta and pulmonary arteries demonstrate normal size. Mediastinum and Kaity: No enlarged lymph nodes. Esophagus: No wall thickening. No hiatal hernia. Upper Abdomen: Splenic granulomas. Scattered atherosclerotic calcification. Visible portions of upper abdominal organs are otherwise normal. IMPRESSION: No new suspicious pulmonary nodules. Pulmonary nodules present have shown two year stability and are benign. LUNG-RADS two; continued annual screening, if eligible. Clinically Significant Non-pulmonary Findings: Heavy coronary artery calcification. Dictated by: Matilde Lozada M.D. on 12/05/2023 at 13:13 Approved by: Matilde Lozada M.D. on 12/05/2023 at 13:45
[2023-12-05 10:22] LABS: Add Manual Diff / Slide Review NO; Basophils Absolute Auto 100 /uL (0-100); Basophils Percent Auto 0.9 % (0-2); Eosinophils Absolute Auto 500 /uL (0-450); Eosinophils Percent Auto 6.2 % (2-4); Hematocrit 41.3 % (41-53); Hemoglobin 14.1 g/dL (13.5-17.5); Lymphocytes Absolute Auto 1500 /uL (1100-4500); Lymphocytes Percent Auto 20.9 % (25-40); Mean Corpuscular HGB Conc 34.2 % (30-36); Mean Corpuscular Hemoglobin 34.1 PG (26-34); Mean Corpuscular Volume 99.6 fL (80-100); Monocytes Absolute Auto 1100 /uL (0-900); Monocytes Percent Auto 15.7 % (3-14); Neutrophils Absolute Auto 4100 /uL (1500-7000); Neutrophils Percent Auto 56.3 % (50-75); Platelet Count 168 X10^3/uL (150-400); Red Blood Cell Count 4.15 X10^6/uL (4.5-5.9); Red Cell Distribution Width 13.8 % (11.6-14.8); White Blood Cell Count 7.2 X10^3/uL (4.5-11.0)
[2023-12-05 11:21] LABS: Alanine Aminotransferase 27 IU/L (<50); Albumin 4.4 g/dL (3.5-5.0); Albumin Globulin Ratio 0.9 (1.0-2.8); Alkaline Phosphatase 84 U/L (38-126); Aspartate Aminotransferase 42 IU/L (17-59); BUN Creatinine Ratio 18.9 (6-22); Bilirubin Total 1.5 mg/dL (0.2-1.3); Blood Urea Nitrogen 14 mg/dL (9-20); Carbon Dioxide 24 mmol/L (22-32); Chloride 99 mmol/L (98-107); Cholesterol 128 mg/dL (140-199); Estimated Glomerular Filt Rate > 60 mL/min (>60); Globulin 4.7 g/dL (1.7-4.1); Glucose 95 mg/dL (80-110); HDL Cholesterol 56 mg/dL (40-60); HEMOLYSIS < 15 (0-50); LDL Cholesterol Calculated 60 mg/dL (<100); Potassium 4.7 mmol/L (3.4-5.1); Sodium 134 mmol/L (137-145); Total Protein 9.1 g/dL (6.3-8.2); Triglycerides 59 mg/dL (35-150)
[2023-12-05 11:34] LABS: Hemoglobin A1C% w Est Avg Glu 5.2 % (4.0-6.0)
== END ==
PROVIDERS: PCP Registered Nurse Diabetes Educator; Referring Provider Registered Nurse Diabetes Educator; Visit Provider Registered Nurse Diabetes Educator
DX: F17.210 Nicotine dependence, cigarettes, uncomplicated (principal); R91.8 Other nonspecific abnormal finding of lung field; R73.01 Impaired fasting glucose; Z12.2 Encounter for screening for malignant neoplasm of respiratory organs; I25.10 Atherosclerotic heart disease of native coronary artery without angina pectoris; E88.09 Other disorders of plasma-protein metabolism, not elsewhere classified; D64.9 Anemia, unspecified; I10 Essential (primary) hypertension
CPT/HCPCS: 36415; 71271; 80053; 80061; 83036; 85025

== ENCOUNTER → 2024-01-17 08:06 | Outpatient (CLI) | payer MEDICARE, OTHER, SELFPAY ==
[2024-01-18 21:12] LABS: Free Kappa Lt Chains, Serum 91.9 mg/L (3.3-19.4); Free Lambda Lt Chains,Serum 57.7 mg/L (5.7-26.3)
== END ==
PROVIDERS: PCP Registered Nurse Diabetes Educator; Referring Provider Registered Nurse Diabetes Educator; Visit Provider Registered Nurse Diabetes Educator
DX: R76.8 Other specified abnormal immunological findings in serum (principal); D64.9 Anemia, unspecified; R77.1 Abnormality of globulin
CPT/HCPCS: 36415; 82784; 83883; 84155; 84165; 86334

== ENCOUNTER → 2024-05-17 10:08 | Outpatient (CLI) | payer MEDICARE, OTHER, SELFPAY ==
[2024-05-17 11:15] LABS: COVID-19 CEPHEID 4-PLEX PCR Negative (Negative); Influenza A - CEPHEID Flu A NEGATIVE (NEGATIVE); Influenza B - CEPHEID Flu B NEGATIVE (NEGATIVE); Respiratory Syncytial Virus Negative (Negative)
== END ==
PROVIDERS: PCP Registered Nurse Diabetes Educator; Visit Provider Student in an Organized Health Care Education/Training Program
DX: R05.1 Acute cough (principal)
CPT/HCPCS: 0241U

== ENCOUNTER → 2024-05-17 10:28 | Outpatient (CLI) | payer MEDICARE, OTHER, SELFPAY ==
--- NOTE | 2024-05-17 10:29 | DI.RAD.S_ITS ---
PROCEDURE: XR CHEST 2V INDICATIONS: cough 4 weeks; suspect Left lower PNA on exam TECHNIQUE: 2 views of the chest were acquired. COMPARISON: None. FINDINGS: Surgical changes and devices: None. Lungs and pleura: Lungs are clear. No pleural effusions or pneumothorax. Mediastinum: Mediastinal contours are normal. Heart size is normal. Bones and chest wall: No suspicious bony abnormalities. Soft tissues appear unremarkable. IMPRESSION: No focal infiltrate is seen. No pleural effusion or pneumothorax. Dictated by: Levi Lopez M.D. on 05/17/2024 at 10:54 Approved by: Levi Lopez M.D. on 05/17/2024 at 10:56
== END ==
PROVIDERS: PCP Registered Nurse Diabetes Educator; Referring Provider Student in an Organized Health Care Education/Training Program; Visit Provider Student in an Organized Health Care Education/Training Program
DX: R05.8 Other specified cough (principal)
CPT/HCPCS: 0241U; 71046

== ENCOUNTER → 2024-12-25 08:38 | Outpatient (CLI) | payer MEDICARE, SELFPAY ==
--- NOTE | 2024-12-25 08:49 | DI.CT.S_ITS ---
PROCEDURE: CT LUNG LOW DOSE SCREENING INDICATIONS: high risk lung cancer screening TECHNIQUE: Noncontrast 2.0-2.5 mm thick sections acquired from the pulmonary apices to the posterior costophrenic angles. 7 mm thick axial MIP, and 5 mm coronal and sagittal reformats were then acquired. For radiation dose reduction, the following was used: automated exposure control, adjustment of mA and/or kV according to patient size. COMPARISON: [facility], CT, CT LUNG LOW DOSE SCREENING, 12/05/2023, 9:19. FINDINGS: Image quality: Diagnostic. Lower Neck: No enlarged lymph nodes. Thyroid: No thyroid nodules which require sonographic follow up, per consensus guidelines. Axillae: No enlarged lymph nodes. Chest Wall: Bilateral gynecomastia. Bones: Visualized osseous structures appear intact without acute fracture or focal destructive lesion. No acute compression fractures of the imaged spine. Lungs and Pleura: No pneumothorax or pleural effusions. Mild upper lobe predominant pulmonary emphysematous changes, stable . No consolidation. No new suspicious or enlarging pulmonary nodules. No septal thickening or nodularity. Visualized airways are clear. Heart: Heart size is normal. No pericardial effusion. Multivessel atherosclerotic calcifications of the coronary arteries. Thoracic Vessels: The aorta and pulmonary arteries demonstrate normal size. Mediastinum and Kaity: No enlarged lymph nodes. Esophagus: No wall thickening. No hiatal hernia. Upper Abdomen: Visualized upper abdomen solid organs and bowel loops appear normal. IMPRESSION: No new suspicious pulmonary nodules. No acute cardiopulmonary abnormalities. LUNG-RADS 2; continued annual screening, if eligible. Clinically Significant Non-pulmonary Findings: Significant coronary artery atherosclerotic calcifications. Correlate with risk factors and symptoms, and advise counseling. Dictated by: Uli Page M.D. on 12/25/2024 at 12:39 Approved by: Uli Page M.D. on 12/25/2024 at 13:06
[2024-12-25 09:28] LABS: Hematocrit 41.1 % (41-53); Hemoglobin 14.3 g/dL (13.5-17.5); Mean Corpuscular HGB Conc 34.9 % (30-36); Mean Corpuscular Hemoglobin 33.4 PG (26-34); Mean Corpuscular Volume 95.5 fL (80-100); Platelet Count 151 X10^3/uL (150-400)
[2024-12-25 09:41] LABS: Hemoglobin A1C% w Est Avg Glu 5.5 % (4.0-6.0)
[2024-12-25 09:47] LABS: Alanine Aminotransferase 26 IU/L (<50); Albumin 4.4 g/dL (3.5-5.0); Albumin Globulin Ratio 1.1 (1.0-2.8); Alkaline Phosphatase 73 U/L (38-126); Blood Urea Nitrogen 19 mg/dL (9-20); Calcium 9.3 mg/dL (8.4-10.2); Carbon Dioxide 27 mmol/L (22-32); Chloride 97 mmol/L (98-107); Cholesterol 107 mg/dL (140-199); Estimated Glomerular Filt Rate > 60 mL/min (>60); Globulin 4.1 g/dL (1.7-4.1); Glucose 128 mg/dL (70-99); HDL Cholesterol 36 mg/dL (40-60); HEMOLYSIS < 15 (0-50); Potassium 4.5 mmol/L (3.4-5.1); Sodium 134 mmol/L (137-145); Total Protein 8.5 g/dL (6.3-8.2); Triglycerides 68 mg/dL (35-150)
[2024-12-25 10:20] LABS: TSH w/ Reflex to FT4 2.29 uIU/mL (0.47-4.68)
== END ==
PROVIDERS: PCP Registered Nurse Diabetes Educator; Referring Provider Registered Nurse Diabetes Educator; Visit Provider Registered Nurse Diabetes Educator
DX: R73.01 Impaired fasting glucose (principal); Z86.73 Personal history of transient ischemic attack (TIA), and cerebral infarction without residual deficits; D64.9 Anemia, unspecified; E88.09 Other disorders of plasma-protein metabolism, not elsewhere classified; R77.1 Abnormality of globulin; F17.210 Nicotine dependence, cigarettes, uncomplicated
CPT/HCPCS: 36415; 71271; 80053; 80061; 83036; 84443; 85027